=== PATIENT | male | born 1985 ===

== ENCOUNTER 2018-06-20 15:55 | Emergency (ER) | payer OTHER ==
[2018-06-20 16:39] VITALS: RESP 18
[2018-06-20] MEDS ORDERED: DICYCLOMINE 10 MG/ML 2 ML AMP IM STA (18:29)
[2018-06-20] MEDS ORDERED: SODIUM CHLORIDE 0.9% 1,000 ML IV ONE (18:29)
[2018-06-20] MEDS ORDERED: ONDANSETRON 4 MG/2 ML VIAL IVP STA (18:29)
--- NOTE | 2018-06-20 18:53 | ED ---
Abdominal Pain HPI - General Chief Complaint: Abdominal Pain Stated Complaint: poss food poisining Time Seen by Provider: 06/20/18 18:29 Source: patient Mode of arrival: ambulatory Limitations: no limitations - History of Present Illness Initial Comments: 32-year-old male patient presents to the emergency department today for evaluation of diarrhea and abdominal cramping. Patient states the symptoms at 11:30 PM last night. Patient states that he did have working the around 5:30 in the afternoon he is concerned he may have food poisoning. Patient states he has had greater than 20 episodes of watery diarrhea. Denies any hematochezia or melena with this. He is had one episode of vomiting. Patient states he has had hot and cold flashes. He does report subjective fevers but did not take his temperature. States he has had appendectomy in the past but denies any other abdominal surgery. Denies any recent travel or sick contacts. Denies any recent antibiotic use. Patient denies any recent rash, shortness breath, chest pain, back pain, numbness, tingling, dizziness, weakness, hematuria, dysuria, urinary urgency, urinary frequency, headache, visual changes, or any other complaints. - Related Data Home Medications Medication Instructions Recorded Confirmed Loperamide HCl [Imodium A-D] 4 mg PO QID PRN 06/20/18 06/20/18 Previous Rx's Medication Instructions Recorded Dicyclomine [Bentyl] 20 mg PO QID #10 tablet 06/20/18 Ondansetron [Zofran ODT] 4 mg PO Q8HR PRN #10 tab 06/20/18 Allergies Allergy/AdvReac Type Severity Reaction Status Date / Time No Known Allergies Allergy Verified 06/20/18 18:40 Review of Systems ROS Statement: Those systems with pertinent positive or pertinent negative responses have been documented in the HPI. ROS Other: All systems not noted in ROS Statement are negative. Past Medical History Past Medical History: No Reported History History of Any Multi-Drug Resistant Organisms: None Reported Past Surgical History: Appendectomy Past Psychological History: No Psychological Hx Reported Smoking Status: Former smoker Past Alcohol Use History: None Reported, Rare Past Drug Use History: None Reported General Exam Limitations: no limitations General appearance: alert, in no apparent distress, other (This is a well- developed, well-nourished adult male patient in no acute distress. Vital signs upon presentation are temperature 99F, pulse 86, respirations 18, blood pressure 103/69, pulse ox 95% on room air.) Eye exam: Present: normal appearance, PERRL, EOMI. Absent: scleral icterus, conjunctival injection, periorbital swelling Respiratory exam: Present: normal lung sounds bilaterally. Absent: respiratory distress, wheezes, rales, rhonchi, stridor Cardiovascular Exam: Present: regular rate, normal rhythm, normal heart sounds. Absent: systolic murmur, diastolic murmur, rubs, gallop, clicks GI/Abdominal exam: Present: soft, tenderness (Generalized mild abdominal tenderness), normal bowel sounds. Absent: distended, guarding, rebound, rigid Neurological exam: Present: alert, oriented X3, CN II-XII intact Psychiatric exam: Present: normal affect, normal mood Skin exam: Present: warm, dry, intact, normal color. Absent: rash Course Vital Signs 06/20/18 06/20/18 16:35 21:06 Temperature 99 F 98 F Pulse Rate 86 60 Respiratory 18 18 Rate Blood Pressure 103/69 112/75 O2 Sat by Pulse 95 98 Oximetry Medical Decision Making - Medical Decision Making 32-year-old male patient presents to the emergency department today with complaints of diarrhea and one episode of vomiting. Physical examination was unremarkable, abdomen soft and nontender. Labs reviewed and are unremarkable. Patient was rehydrated. Given Bentyl and Zofran. Upon reevaluation patient reports he is feeling better. He'll be discharged home with prescription for Zofran and Bentyl. He is instructed to follow-up with his primary care physician for recheck in 1-2 days. Return parameters were discussed in detail. He verbalizes understanding and agrees with this plan. - Lab Data Result diagrams: 06/20/18 18:40 06/20/18 18:40 Lab Results 06/20/18 06/20/18 06/20/18 Range/Units 18:40 18:40 20:30 WBC 7.4 (3.8-10.6) k/uL RBC 5.10 (4.30-5.90) m/uL Hgb 15.5 (13.0-17.5) gm/dL Hct 44.5 (39.0-53.0) % MCV 87.3 (80.0-100.0) fL MCH 30.4 (25.0-35.0) pg MCHC 34.9 (31.0-37.0) g/dL RDW 12.4 (11.5-15.5) % Plt Count 225 (150-450) k/uL Neutrophils % 84 % Lymphocytes % 8 % Monocytes % 5 % Eosinophils % 1 % Basophils % 0 % Neutrophils # 6.2 (1.3-7.7) k/uL Lymphocytes # 0.6 L (1.0-4.8) k/uL Monocytes # 0.4 (0-1.0) k/uL Eosinophils # 0.1 (0-0.7) k/uL Basophils # 0.0 (0-0.2) k/uL Sodium 140 (137-145) mmol/L Potassium 3.9 (3.5-5.1) mmol/L Chloride 104 (98-107) mmol/L Carbon Dioxide 27 (22-30) mmol/L Anion Gap 9 mmol/L BUN 14 (9-20) mg/dL Creatinine 0.85 (0.66-1.25) mg/dL Est GFR (CKD-EPI)AfAm >90 (>60 ml/min/1.73 sqM) Est GFR (CKD-EPI)NonAf >90 (>60 ml/min/1.73 sqM) Glucose 102 H (74-99) mg/dL Calcium 9.2 (8.4-10.2) mg/dL Total Bilirubin 0.6 (0.2-1.3) mg/dL AST 26 (17-59) U/L ALT 36 (21-72) U/L Alkaline Phosphatase 54 (38-126) U/L Total Protein 6.7 (6.3-8.2) g/dL Albumin 4.1 (3.5-5.0) g/dL Amylase 32 (30-110) U/L Lipase 35 (23-300) U/L Urine Color Colorless Urine Appearance Clear (Clear) Urine pH 5.5 (5.0-8.0) Ur Specific [place] 1.001 (1.001-1.035) Urine Protein Negative (Negative) Urine Glucose (UA) Negative (Negative) Urine Ketones Negative (Negative) Urine Blood Negative (Negative) Urine Nitrite Negative (Negative) Urine Bilirubin Negative (Negative) Urine Urobilinogen <2.0 (<2.0) mg/dL Ur Leukocyte Esterase Negative (Negative) - Radiology Data Radiology results: report reviewed, image reviewed 2 views of the abdomen are obtained. Report was reviewed in its entirety. Impression by Dr. Kasia Oliva shows negative examination Disposition Clinical Impression: Enteritis Disposition: HOME SELF-CARE Condition: Good Instructions: Enteritis (ED) Additional Instructions: Increase fluids. Take medications as directed. Follow-up with your primary care physician for recheck in 1-2 days. Return immediately for any new, worsening, or concerning symptoms. Prescriptions: Dicyclomine [Bentyl] 20 mg PO QID #10 tablet Ondansetron [Zofran ODT] 4 mg PO Q8HR PRN #10 tab PRN Reason: Nausea Is patient prescribed a controlled substance at d/c from ED?: No Referrals: Michael Montilla Jr, [Primary Care Provider] - 1-2 days Time of Disposition: 20:48
[2018-06-20 19:08] LABS: Basophils % (A) 0 %; Eosinophils # (A) 0.1 k/uL (0-0.7); Eosinophils % (A) 1 %; HCT 44.5 % (39.0-53.0); HGB 15.5 gm/dL (13.0-17.5); Lymphocytes # (A) 0.6 k/uL (1.0-4.8); Lymphocytes % (A) 8 %; MCH 30.4 pg (25.0-35.0); MCHC 34.9 g/dL (31.0-37.0); MCV 87.3 fL (80.0-100.0); Mean Platelet Volume 7.1; Monocytes # (A) 0.4 k/uL (0-1.0); Monocytes % (A) 5 %; Neutrophils # (A) 6.2 k/uL (1.3-7.7); Neutrophils % (A) 84 %; Platelet Count 225 k/uL (150-450); RDW 12.4 % (11.5-15.5); WBC 7.4 k/uL (3.8-10.6)
[2018-06-20 19:16] LABS: ALT 36 U/L (21-72); AST 26 U/L (17-59); Albumin 4.1 g/dL (3.5-5.0); Alkaline Phosphatase 54 U/L (38-126); Amylase 32 U/L (30-110); Anion Gap 9 mmol/L; Blood Urea Nitrogen 14 mg/dL (9-20); Calcium 9.2 mg/dL (8.4-10.2); Carbon Dioxide 27 mmol/L (22-30); Chloride 104 mmol/L (98-107); Glucose 102 mg/dL (74-99); Lipase 35 U/L (23-300); Potassium 3.9 mmol/L (3.5-5.1); Sodium 140 mmol/L (137-145); Total Bilirubin 0.6 mg/dL (0.2-1.3); Total Protein 6.7 g/dL (6.3-8.2)
[2018-06-20] MEDS ORDERED: ACETAMINOPHEN TAB 500 MG TAB PO STA (19:47)
--- NOTE | 2018-06-20 20:12 | XR ---
EXAMINATION TYPE: XR KUB 2 views DATE OF EXAM: 06/20/2018 COMPARISON: NONE HISTORY: Nausea and vomiting and diarrhea TECHNIQUE: 2 upright views FINDINGS: The visualized lung bases and pleural spaces are negative. There is no pneumoperitoneum or pneumatosis, and no bowel obstruction. There are no soft tissue or skeletal acute abdominal pelvic findings. IMPRESSION: Negative examination.
[2018-06-20 20:40] LABS: Appearance,Urine Clear (Clear); Bilirubin,Urine Negative (Negative); Blood,Urine Negative (Negative); Color,Urine Colorless; Glucose,Urine (UA) Negative (Negative); Ketones,Urine Negative (Negative); Leukocyte Esterase,Urine Negative (Negative); Nitrite,Urine Negative (Negative); PH, Urine 5.5 (5.0-8.0); Protein,Urine Negative (Negative); Specific Gravity,Urine 1.001 (1.001-1.035); Urobilinogen,Urine <2.0 mg/dL (<2.0)
[2018-06-20 21:09] VITALS: BP 112/75; PULSE 60; TEMP 98
== END 2018-06-20 21:06 | disposition home or self-care (01) ==
LOC: EC 15:55
DX: K52.9 Noninfective gastroenteritis and colitis, unspecified (principal); Z87.891 Personal history of nicotine dependence; Z90.49 Acquired absence of other specified parts of digestive tract
CPT/HCPCS: 36415; 80053; 82150; 83690; 85025; 81003; 74018; 99284; 96374; 96361; 96372; J0500; J2405

== ENCOUNTER 2020-01-25 18:30 | Emergency (ER) | payer BC, OTHER ==
[2020-01-25 18:44] VITALS: RESP 16
[2020-01-25] MEDS ORDERED: SODIUM CHLORIDE 0.9% 1,000 ML IV STA (18:56)
--- NOTE | 2020-01-25 19:00 | ED ---
Abdominal Pain HPI - General Source: patient Mode of arrival: ambulatory Limitations: no limitations <Abelardo Roland - Last Filed: 01/25/20 22:34> <Allie Monet - Last Filed: 01/27/20 02:31> - General Chief Complaint: Abdominal Pain Stated Complaint: Abd pain Time Seen by Provider: 01/25/20 18:46 - History of Present Illness Initial Comments: Patient is a 34-year-old male presenting to emergency Department with a chief complaint of abdominal pain. Patient states about 2 weeks ago he was working on his car while sitting on [place] style. States she was lifting multiple heavy objects under the car. States the following day he developed abdominal pain that appears to be exacerbated with movement. Patient also reports acid incident, he developed epigastric and right upper quadrant pain that only appea red after meals. Patient reports the pain was worse today and last night after he ate. He denies any nausea or vomiting the area. Denies any testicular pain or swelling. Denies any hematuria, hematochezia or melena. Denies dysuria, increased frequency or urgency. (Abelardo Roland) - Related Data Home Medications Medication Instructions Recorded Confirmed Melatonin 5 mg PO HS 01/25/20 01/25/20 Allergies Allergy/AdvReac Type Severity Reaction Status Date / Time No Known Allergies Allergy Verified 01/25/20 19:46 Review of Systems ROS Other: All systems not noted in ROS Statement are negative. <Abelardo Roland - Last Filed: 01/25/20 22:34> ROS Other: All systems not noted in ROS Statement are negative. <Allie Monet - Last Filed: 01/27/20 02:31> ROS Statement: Those systems with pertinent positive or pertinent negative responses have been documented in the HPI. Past Medical History Past Medical History: No Reported History History of Any Multi-Drug Resistant Organisms: None Reported Past Surgical History: Appendectomy Past Psychological History: No Psychological Hx Reported, Anxiety, Depression Smoking Status: Current every day smoker Past Alcohol Use History: Occasional Past Drug Use History: None Reported <Abelardo Roland - Last Filed: 01/25/20 22:34> General Exam Limitations: no limitations General appearance: alert, in no apparent distress Head exam: Present: atraumatic, normocephalic, normal inspection Eye exam: Present: normal appearance, PERRL, EOMI Pupils: Present: normal accommodation ENT exam: Present: normal exam, normal oropharynx, mucous membranes moist, TM's normal bilaterally, normal external ear exam Neck exam: Present: normal inspection, full ROM. Absent: tenderness Respiratory exam: Present: normal lung sounds bilaterally. Absent: respiratory distress, wheezes, rales Cardiovascular Exam: Present: regular rate, normal rhythm, normal heart sounds GI/Abdominal exam: Present: soft, tenderness (Workup quadrant and epigastric abdominal pain. Negative Rosales sign. Negative McBurney point tenderness.). Absent: distended, guarding, rebound, rigid Extremities exam: Present: normal inspection, full ROM. Absent: tenderness Back exam: Present: normal inspection, full ROM. Absent: tenderness Neurological exam: Present: alert, oriented X3 Psychiatric exam: Present: normal affect, normal mood Skin exam: Present: warm, dry, intact, normal color <Abelardo Roland - Last Filed: 01/25/20 22:34> Course Vital Signs 01/25/20 01/25/20 01/25/20 18:40 20:40 20:43 Temperature 98.9 F 98.0 F Pulse Rate 88 74 Respiratory 16 16 Rate Blood Pressure 124/76 131/80 O2 Sat by Pulse 97 74 L Oximetry Medical Decision Making - Lab Data Result diagrams: 01/25/20 19:15 01/25/20 19:15 <Abelardo Roland - Last Filed: 01/25/20 22:34> - Lab Data Result diagrams: 01/25/20 19:15 01/25/20 19:15 <Allie Monet - Last Filed: 01/27/20 02:31> - Medical Decision Making Patient is a 34-year-old male presenting to emergency Department with a chief complaint of abdominal pain. On exam patient has right upper quadrant and epigastric abdominal pain but negative Rosales sign. This is postprandial pain the patient is expressing. With upper quadrant ultrasound reveals no signs of renal stones or biliary duct dilation. CBC CMP and UA are unremarkable. I suspect this is musculoskeletal pain. Patient advised to stretch his abdominal muscles on daily basis. He was advised to follow-up with his primary care. He was also advised to attempt a low-fat diet and see if there is improvement in his symptoms. Patient given fluids only. Return parameters were thoroughly discussed the patient was understanding and agreeable. Vitals are stable. Case discussed with physician. (Abelardo Roland) I was available for consultation in the emergency department. The history and physical exam were done by the midlevel provider. I was consulted for this patients care. I reviewed the case with the midlevel provider and based on their presentation of the patient, I agree with the assessment, medical decision making and plan of care as documented. Chart was dictated using [employer] dictation software. Attempts were made to correct any dictation errors however some typographical errors may persist. Patient was seen during a national state of emergency due to the Covid-19 pandemic. (Allie Monet) - Lab Data Lab Results 01/25/20 01/25/20 01/25/20 Range/Units 19:15 19:15 19:37 WBC 10.4 (3.8-10.6) k/uL RBC 5.06 (4.30-5.90) m/uL Hgb 15.6 (13.0-17.5) gm/dL Hct 44.8 (39.0-53.0) % MCV 88.6 (80.0-100.0) fL MCH 30.9 (25.0-35.0) pg MCHC 34.8 (31.0-37.0) g/dL RDW 12.3 (11.5-15.5) % Plt Count 297 (150-450) k/uL Neutrophils % 67 % Lymphocytes % 21 % Monocytes % 7 % Eosinophils % 3 % Basophils % 1 % Neutrophils # 6.9 (1.3-7.7) k/uL Lymphocytes # 2.2 (1.0-4.8) k/uL Monocytes # 0.7 (0-1.0) k/uL Eosinophils # 0.4 (0-0.7) k/uL Basophils # 0.1 (0-0.2) k/uL Sodium 139 (137-145) mmol/L Potassium 4.2 (3.5-5.1) mmol/L Chloride 103 (98-107) mmol/L Carbon Dioxide 27 (22-30) mmol/L Anion Gap 9 mmol/L BUN 17 (9-20) mg/dL Creatinine 1.03 (0.66-1.25) mg/dL Est GFR (CKD-EPI)AfAm >90 (>60 ml/min/1.73 sqM) Est GFR (CKD-EPI)NonAf >90 (>60 ml/min/1.73 sqM) Glucose 91 (74-99) mg/dL Calcium 9.7 (8.4-10.2) mg/dL Total Bilirubin 0.6 (0.2-1.3) mg/dL AST 27 (17-59) U/L ALT 20 (4-49) U/L Alkaline Phosphatase 61 (38-126) U/L Total Protein 7.2 (6.3-8.2) g/dL Albumin 4.6 (3.5-5.0) g/dL Lipase 79 (23-300) U/L Urine Color Yellow Urine Appearance Clear (Clear) Urine pH 7.0 (5.0-8.0) Ur Specific [place] 1.024 (1.001-1.035) Urine Protein Negative (Negative) Urine Glucose (UA) Negative (Negative) Urine Ketones Negative (Negative) Urine Blood Negative (Negative) Urine Nitrite Negative (Negative) Urine Bilirubin Negative (Negative) Urine Urobilinogen <2.0 (<2.0) mg/dL Ur Leukocyte Esterase Negative (Negative) Disposition Is patient prescribed a controlled substance at d/c from ED?: No Time of Disposition: 20:05 <Abelardo Roland - Last Filed: 01/25/20 22:34> <Allie Monet - Last Filed: 01/27/20 02:31> Clinical Impression: Abdominal wall strain, Abdominal pain Disposition: HOME SELF-CARE Condition: Stable Instructions (If sedation given, give patient instructions): Abdominal Pain (ED) Additional Instructions: Follow with her primary care. Alternate between Tylenol and pain control. Perform abdominal wall stretches every morning. Return to emergency department if symptoms worsen. Referrals: Marta Mata MD [Primary Care Provider] - 1-2 days
[2020-01-25 19:25] LABS: Basophils # (A) 0.1 k/uL (0-0.2); Basophils % (A) 1 %; Eosinophils # (A) 0.4 k/uL (0-0.7); Eosinophils % (A) 3 %; HCT 44.8 % (39.0-53.0); HGB 15.6 gm/dL (13.0-17.5); Lymphocytes # (A) 2.2 k/uL (1.0-4.8); Lymphocytes % (A) 21 %; MCH 30.9 pg (25.0-35.0); MCHC 34.8 g/dL (31.0-37.0); MCV 88.6 fL (80.0-100.0); Mean Platelet Volume 7.5; Monocytes # (A) 0.7 k/uL (0-1.0); Monocytes % (A) 7 %; Neutrophils # (A) 6.9 k/uL (1.3-7.7); Neutrophils % (A) 67 %; Platelet Count 297 k/uL (150-450); RBC 5.06 m/uL (4.30-5.90); RDW 12.3 % (11.5-15.5); WBC 10.4 k/uL (3.8-10.6)
[2020-01-25 19:38] LABS: ALT 20 U/L (4-49); AST 27 U/L (17-59); African American GFR (CKD) >90 (>60 ml/min/1.73 sqM); Albumin 4.6 g/dL (3.5-5.0); Alkaline Phosphatase 61 U/L (38-126); Anion Gap 9 mmol/L; Blood Urea Nitrogen 17 mg/dL (9-20); Calcium 9.7 mg/dL (8.4-10.2); Carbon Dioxide 27 mmol/L (22-30); Chloride 103 mmol/L (98-107); Glucose 91 mg/dL (74-99); Lipase 79 U/L (23-300); Non-African American GFR(CKD) >90 (>60 ml/min/1.73 sqM); Potassium 4.2 mmol/L (3.5-5.1); Sodium 139 mmol/L (137-145); Total Bilirubin 0.6 mg/dL (0.2-1.3); Total Protein 7.2 g/dL (6.3-8.2)
--- NOTE | 2020-01-25 19:50 | US ---
EXAMINATION TYPE: US abdomen limited DATE OF EXAM: 01/25/2020 COMPARISON: NONE CLINICAL HISTORY: RUQ pain, -rosales. Patient ate 1 hour ago. Abd pain x2 weeks. Difficult and limited exam due to overlying bowel gas EXAM MEASUREMENTS: Liver Length: 15.6 cm Gallbladder Wall: 0.2 cm CBD: 0.4 cm Right Kidney: 10.1 x 5.5 x 4.9 cm Pancreas: Obscured by bowel gas Liver: wnl Gallbladder: wnl Evidence for sonographic Rosales's sign: No CBD: wnl as visualized Right Kidney: No hydronephrosis or masses seen IMPRESSION: No gallstones or dilated ducts. No focal liver defect.
[2020-01-25 20:01] LABS: Appearance,Urine Clear (Clear); Bilirubin,Urine Negative (Negative); Blood,Urine Negative (Negative); Color,Urine Yellow; Glucose,Urine (UA) Negative (Negative); Ketones,Urine Negative (Negative); Leukocyte Esterase,Urine Negative (Negative); Nitrite,Urine Negative (Negative); Protein,Urine Negative (Negative); Specific Gravity,Urine 1.024 (1.001-1.035); Urobilinogen,Urine <2.0 mg/dL (<2.0)
[2020-01-25 20:41] VITALS: BP 131/80; PULSE 74
[2020-01-25 20:45] VITALS: TEMP 98
== END 2020-01-25 20:43 | disposition home or self-care (01) ==
LOC: EC 18:30
DX: S39.011A Strain of muscle, fascia and tendon of abdomen, initial encounter (principal); F17.200 Nicotine dependence, unspecified, uncomplicated; X50.0XXA Overexertion from strenuous movement or load, initial encounter; Y93.89 Activity, other specified; Y92.69 Other specified industrial and construction area as the place of occurrence of the external cause
CPT/HCPCS: 36415; 76705; 80053; 81003; 83690; 85025; 96360; 99284

== ENCOUNTER 2020-05-29 21:11 | Emergency (ER) | payer BC ==
[2020-05-29] MEDS ORDERED: IBUPROFEN 600 MG STARTER PACK 4 TAB BTL PO STA (21:28)
--- NOTE | 2020-05-29 22:17 | ED ---
Abdominal Pain HPI - General Chief Complaint: Abdominal Pain Stated Complaint: abd pain Time Seen by Provider: 05/29/20 21:19 Source: patient, RN notes reviewed, old records reviewed Mode of arrival: ambulatory Limitations: no limitations - History of Present Illness Initial Comments: Patient is a 34-year-old male presents emergency with upper abdominal pain after he was pulling a piece of equipment out of an engine and felt a pop in his left upper quadrant. Patient reports he has pain with certain movements. Patient denies any significant protrusion or skin changes over the abdomen. He reports that with taking a breath it does pull on the muscles causing pain. Patient denies any fevers or chills. Denies changes in urination or bowel habits. - Related Data Previous Rx's Medication Instructions Recorded Ibuprofen [Motrin] 600 mg PO Q8HR PRN #20 tab 05/29/20 Allergies Allergy/AdvReac Type Severity Reaction Status Date / Time No Known Allergies Allergy Verified 05/29/20 22:04 Review of Systems ROS Statement: Those systems with pertinent positive or pertinent negative responses have been documented in the HPI. ROS Other: All systems not noted in ROS Statement are negative. Past Medical History Past Medical History: No Reported History History of Any Multi-Drug Resistant Organisms: None Reported Past Surgical History: Appendectomy Past Psychological History: Anxiety, Depression Smoking Status: Vaper Past Alcohol Use History: Occasional Past Drug Use History: None Reported General Exam - General Exam Comments Initial Comments: 34-year-old male. Limitations: no limitations General appearance: alert, in no apparent distress Head exam: Present: atraumatic, normocephalic, normal inspection Eye exam: Present: normal appearance, PERRL, EOMI. Absent: scleral icterus, conjunctival injection, periorbital swelling ENT exam: Present: normal exam, mucous membranes moist Neck exam: Present: normal inspection. Absent: tenderness, meningismus, lymphadenopathy Respiratory exam: Present: normal lung sounds bilaterally. Absent: respiratory distress, wheezes, rales, rhonchi, stridor Cardiovascular Exam: Present: regular rate, normal rhythm, normal heart sounds. Absent: systolic murmur, diastolic murmur, rubs, gallop, clicks GI/Abdominal exam: Present: soft, normal bowel sounds, other (Patient has positive Kernig sign with flexion of the abdominal muscles. No masses. No bruising.). Absent: distended, tenderness, guarding, rebound, rigid Extremities exam: Present: normal inspection, full ROM, normal capillary refill. Absent: tenderness, pedal edema, joint swelling, calf tenderness Back exam: Present: normal inspection Neurological exam: Present: alert, oriented X3, CN II-XII intact Psychiatric exam: Present: normal affect, normal mood Skin exam: Present: warm, dry, intact, normal color. Absent: rash Course Vital Signs 05/29/20 05/29/20 05/29/20 21:13 22:15 23:17 Temperature 97.9 F 97.8 F Pulse Rate 79 76 67 Respiratory 18 17 17 Rate Blood Pressure 126/82 125/79 127/80 O2 Sat by Pulse 99 98 98 Oximetry Medical Decision Making - Medical Decision Making 4-year-old male presents return today with left upper quadrant abdominal pain after he was lifting something from an engine and felt a pop in his abdomen. He reports painful certain movements and taking a breath. He has some tenderness up in the left upper quadrant of the abdomen near the abdominal rectus muscle and sternum. Patient at this time has no palpable mass. No swelling. No skin changes. Discussed no evidence of hernia with abdominal flexion. Discussed that Patient seems to likely rupture possibly tear the abdominal rectus muscle. I discussed that take anti-inflammatory medicines the past symptoms. Discussed that he developed any skin changes or palpable mass to be reevaluated by primary care or ER for hernia. He is advised to avoid any heavy lifting or straining. Patient has history of plan will comply. Disposition Clinical Impression: Abdominal muscle strain Disposition: HOME SELF-CARE Condition: Good Instructions (If sedation given, give patient instructions): Muscle Strain (ED) Additional Instructions: Take anti-inflammatory medicine for pain. Avoid any heavy lifting. Patient should follow-up with primary care doctor if symptoms continue persist. Recommended if there is any palpable bulge or skin changes return to the ER for reevaluation. Prescriptions: Ibuprofen [Motrin] 600 mg PO Q8HR PRN #20 tab PRN Reason: Pain Is patient prescribed a controlled substance at d/c from ED?: No Referrals: Marta Mata MD [Primary Care Provider] - 1-2 days Time of Disposition: 23:01
[2020-05-29 22:26] VITALS: RESP 17
--- NOTE | 2020-05-29 22:34 | XR ---
EXAMINATION TYPE: XR chest 2V DATE OF EXAM: 05/29/2020 COMPARISON: NONE HISTORY: Chest pain TECHNIQUE: FINDINGS: Heart and mediastinum are normal. Lungs are clear. Diaphragm is normal. Bony thorax appears normal. IMPRESSION: Normal chest.
[2020-05-29 23:18] VITALS: BP 127/80; PULSE 67; TEMP 97.8
== END 2020-05-29 23:18 | disposition home or self-care (01) ==
LOC: EC 21:11
DX: S39.011A Strain of muscle, fascia and tendon of abdomen, initial encounter (principal); F17.290 Nicotine dependence, other tobacco product, uncomplicated; Z90.49 Acquired absence of other specified parts of digestive tract; W22.8XXA Striking against or struck by other objects, initial encounter
CPT/HCPCS: 71046; 99284

== ENCOUNTER → 2020-07-10 | Outpatient (CLI) | payer BC ==
--- NOTE | 2020-07-10 15:33 | CONS ---
CONSULTATION DATE OF SERVICE: 07/10/2020 This patient is a 35-year-old gentleman who has been evaluated in [facility] for possible obstructive sleep apnea-hypopnea syndrome and significant excessive daytime sleepiness. HISTORY OF PRESENT ILLNESS/SLEEP-WAKE EVALUATION: Patient's usual sleep schedule is from 10 p.m. to 4 a.m. or 9 a.m., depending on his work schedule, and on weekends from midnight until 10 a.m. No problems with falling asleep, although he has a TV set in the bedroom. He usually sleeps on the back position. His snoring is very loud. He was diagnosed with obstructive sleep apnea in 2010. At present he continues to snore and, according to his , he has episodes of stopped breathing during sleep. He may wake up from sleep with heartburn, gasping for air, restless legs, sleeptalking and episodes of choking. In the morning the patient wakes up tired, has difficulties paying attention, falling asleep during the day. Hallock Sleepiness Scale is significantly increased at 15. History of problems with concentration and irritability. PAST SURGICAL HISTORY: Appendectomy. PAST MEDICAL HISTORY: Acid reflux, headaches. MEDICATIONS: None. FAMILY HISTORY: Snoring, diabetes, thyroid problems, asthma, sinus problems. REVIEW OF SYSTEMS: Sleepiness, snoring, episodes of headaches. PHYSICAL EXAMINATION: GENERAL: A pleasant gentleman without distress. VITAL SIGNS: BP 139/70, HR 74, RR 15, height 5 feet 11-1/2 inches, weight 193 pounds. Body mass index 26.5. Temperature 98.7, oxygen saturation at room air 97%. HEENT: PERRLA, EOMI. Evaluation of oropharynx showed tongue protrudes midline. Low position of soft palate. Mallampati III. Wide pillars. NECK: Supple. No JVD. Thyroid is not palpable. Neck measures 15-1/2 inches in circumference. LUNGS: Clear to percussion and to auscultation. Good air exchange. No wheezing or rhonchi. HEART: S1, S2 regular. No murmurs, gallops or rubs. ABDOMEN: Soft and nontender. Bowel sounds are present. No organomegaly appreciated. EXTREMITIES: No clubbing or cyanosis. TREE FALLER: Awake, alert, and oriented X3. Cranial nerves 2 to 7 intact. There is no fasciculation or atrophy. noted. No focal deficits observed. IMPRESSION: 1. Loud snoring, witnessed episodes of stopped breathing during sleep, small oropharyngeal air space, sleepiness; obstructive sleep apnea-hypopnea syndrome. 2. Significant excessive daytime sleepiness. Differential diagnosis is hypersomnia; also could be related to insufficient amount of sleep related to work schedule. 3. History of acid reflux. 4. History of headaches. 5. Status post appendectomy. PLAN: 1. Home sleep apnea test for evaluation of patient's breathing during sleep. 2. CPAP/BiPAP titration if sleep study confirms obstructive sleep apnea-hypopnea syndrome. 3. Preferable position during sleep on the side. 4. No driving if patient feels any sleepiness. 5. I will see patient for follow up visit to explain results of testing and following plan. Thank you very much for referring this patient for consultation. Sincerely, Nando Nielson MD, PhD, FAASM Diplomat of [place] [employer] [place] [employer] Manager of [facility] [place] MMODL / IJN: [id number] /
== END | disposition home or self-care (01) ==
LOC: SLEEP 14:23
PROVIDERS: ATTEND Internal Medicine
DX: G47.33 Obstructive sleep apnea (adult) (pediatric) (principal); Z86.69 Personal history of other diseases of the nervous system and sense organs; Z87.19 Personal history of other diseases of the digestive system
CPT/HCPCS: 99211

== ENCOUNTER → 2020-10-16 | Outpatient (CLI) | payer BC ==
--- NOTE | 2020-10-16 16:20 | SFUN ---
SLEEP CENTER FOLLOW UP NOTE DATE OF SERVICE: 10/16/2020 This 35-year-old gentleman has been followed in [facility] Center for treatment of obstructive sleep apnea-hypopnea syndrome. Recently the patient had home sleep apnea test which showed apnea-hypopnea index 12 and oxygen level at that time was below normal for 25 minutes according to results of home sleep apnea test. Subsequently, patient was started on treatment with auto PAP. Today is his first visit after he was started on treatment. He is able to use equipment every night for the whole night, but he continued to feel sleepiness during the day. [place] Sleepiness Scale today increased to 15 significantly. He does not have scheduled naps, but feels sleepy multiple times during the day if he is not active. I checked his CPAP unit. Range of the pressure 5-17. The average pressure 10 cm of water. Usage is 100% of nights. Average usage is 7.6 hours per night. Leak is 7 L/minute, which is normal. Apnea-hypopnea index is 2, which is perfect. MEDICATIONS: None. PHYSICAL EXAMINATION: GENERAL: Patient in no distress. VITAL SIGNS: BP 137/70, HR 84, RR 16, weight 195.2, temperature 97.2, oxygen saturation at room air 98%. HEENT: PERRLA, EOMI. Oropharynx low position of soft palate. Mallampati 3. NECK: Supple, no JVD. Thyroid is not palpable. LUNGS: Clear to percussion and to auscultation. Good air exchange. No wheezing or rhonchi. HEART: S1, S2 regular. No murmurs, gallops, or rubs. ABDOMEN: Soft and nontender. Bowel sounds are present. No organomegaly appreciated. EXTREMITIES: No clubbing or cyanosis. SPORTS DIRECTOR: Awake, alert, and oriented X3. Cranial nerves 2 to 7 intact. There is no fasciculation or atrophy. noted. No focal deficits observed. IMPRESSION: 1. Obstructive sleep apnea-hypopnea syndrome. The patient demonstrated 100% compliance with treatment. Normal respiration on treatment with CPAP. 2. The patient continued to feel excessive sleepiness. [place] Sleepiness Scale increased today to 15. Differential diagnosis include hypersomnia and narcolepsy without cataplexy. 3. History of acid reflux. 4. Status post appendectomy. PLAN: 1. CPAP night with following multiple sleep latency test for objective evaluation of patient's symptoms of excessive daytime sleepiness to check for possibility of hypersomnia and narcolepsy. 2. Sleep hygiene with regular time in bed for 7-1/2 to 8 hours. 3. No driving if feeling sleepiness. 4. Following plan after reviewing results of MSLT. Thank you very much for allowing me to participate in management of your patient. Sincerely, Nando Nielson MD, PhD, FAASM Diplomat of [employer] Literary Writer [facility] [place] MMODL / IJN: [id number] /
== END ==
LOC: SLEEP 15:04
PROVIDERS: ATTEND Internal Medicine
DX: G47.33 Obstructive sleep apnea (adult) (pediatric) (principal); Z99.89 Dependence on other enabling machines and devices; K21.9 Gastro-esophageal reflux disease without esophagitis; Z98.890 Other specified postprocedural states

== ENCOUNTER → 2020-12-10 | Outpatient (CLI) | payer BC ==
--- NOTE | 2020-12-10 23:42 | SFUN ---
SLEEP CENTER FOLLOW UP NOTE DATE OF SERVICE: This is telemedicine appointment 12/10/2020. TELEMEDICINE APPOINTMENT: 35-year-old gentleman has been followed to discuss results of the sleep studies and following plan. The patient was diagnosed with obstructive sleep apnea-hypopnea syndrome in mild range but the patient presented with symptoms of excessive daytime sleepiness and while on treatment with CPAP, he does not feel improvements. He actually feels more sleepy on CPAP then without CPAP according to him. We did CPAP night with multiple sleep latency test on the following day, and I discussed results of the sleep study with patient in details. During night on CPAP, patient jainism was on full control and his sleep architecture during that night showed high amount of delta sleep 29.3%. In REM sleep was slightly decreased to 12.5%. On the following day, patient had 5 naps and the patient fell asleep on each nap very quickly. Mean sleep latency was pathologically short at 2.7 minutes and 5 sleep onset REM periods have been documented during naps which most probably indicate narcolepsy. I explained results of sleep study to patient in full details. We discussed necessity to be extremely careful about driving. The patient should not drive if he feels any sleepiness. MEDICATIONS: At the present time: None. IMPRESSION: 1. Obstructive sleep apnea-hypopnea syndrome on full control with CPAP. 2. Multiple sleep latency test confirmed pathological sleepiness. 3. 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 Patient does not have any history of cataplexy events. 4. History of acid reflux. 5. Headaches. 6. Status post appendectomy. PLAN: 1. The patient will be started on Adderall 5 mg twice a day in order to check his reaction of medication and evaluate clinical response on medications. 2. The patient should continue to use CPAP equipment every night for the whole night. 3. Sleep hygiene with regular time in bed for at least 7.5 to 8 hours. 4. Extreme precautions to driving. No driving if feeling sleepiness. The patient is aware about civil and criminal liability for unsafe driving. The patient promised to follow recommendations. 5. Follow-up visit in several weeks to evaluate clinical response on treatment with Adderall. Thank you very much for allowing me to participate in management of your patient. Sincerely, Nando Nielson MD, PhD, FAASM Diplomat of [employer] [employer] [employer] [facility] [place] MMODL / HALLEYN: [id number] /